=== PATIENT | male | born 2000 | race Caucasian/White ===

== ENCOUNTER 2020-03-06 08:29 | Outpatient (CLI) | payer OTHER ==
--- NOTE | 2020-03-06 11:31 | MRI Report ---
PROCEDURE: Hip RT W/O INDICATIONS: RIGHT HIP PAIN TECHNIQUE: Noncontrast coronal T1 spin echo and STIR through the bony pelvis. Coronal and axial T2 fast spin ec ho with fat saturation, sagittal T1 spin echo, and oblique axial T2 fast spin echo with fat saturatio n through the hip. COMPARISON: None. FINDINGS: Image quality: Excellent. Bones and joints: Bone marrow of the pelvic ring and proximal femurs show normal signal throughout. No intraosseous lesions or fractures. No avascular necrosis of the femoral heads. The visualized l ower lumbar spine appears normally aligned. Tendons: The gluteus medius and minimus tendons appear intact, without associated muscle atrophy. T he iliopsoas tendon appears intact, without adjacent bursal fluid collections. The origin of the ham string tendon is intact at the ischial tuberosity. Labrum and cartilage: The acetabular labrum appears intact in the absence of intra-articular contras t. Cartilage surface of the femoral head appears of normal thickness. The alpha angle of the femur is within normal limits at less than 55 degrees. Soft tissues: Visualized muscles demonstrate normal bulk and internal signal. The proximal sciatic neurovascular bundle appears normal adjacent to the hamstring tendons. No free pelvic fluid. Bladde r wall thickness is normal. Genitourinary structures and bowel loops appear normal where visualized. IMPRESSION: Unremarkable MR examination of right hip. No findings to explain patient's symptoms. Reviewed by: Craig Spann MD on 03/06/2020 11:30 AM PDT Approved by: Craig Spann MD on 03/06/2020 11:30 AM PDT Station ID: [id number]
== END 2020-03-06 08:30 | disposition home or self-care (01) ==
LOC: DI 08:29
DX: M25.551 Pain in right hip (principal)

== ENCOUNTER 2022-03-24 08:00 | Outpatient (CLI) | payer OTHER | END 2022-03-24 23:59 | disposition home or self-care (01) | LOC: LAB.N 08:00 | PROVIDERS: ATTEND Family Medicine | DX: R19.7 Diarrhea, unspecified (principal) | CPT/HCPCS: 87493 ==

== ENCOUNTER 2022-08-25 11:53 | Emergency (ER) | payer OTHER ==
[2022-08-25 12:05] VITALS: BP 126/80
--- NOTE | 2022-08-25 14:13 | ED Physician Documentation ---
History of Present Illness - Stated complaint Stated Complaint: L LEG PX - Chief complaint Chief Complaint: Ext Problem - History obtained from History obtained from: Patient - History of Present Illness Timing: Other (several years) Pain level max: 5 Pain level now: 1 - Additonal information Additional information: Patient is a 22-year-old male who states that he has had left hip pain for years. He states he keeps going to the emergency department and nobody can tell him what is wrong. He states he had an MRI 2 years ago but does not know what the results were. No fevers. No chills. Worse with movement, better with rest. He thinks that he tried physical therapy but does not know if he has ever seen an orthopedist. Denies any back pain. No loss of bowel or bladder control. No trauma. No falls. No fevers. Patient states that sometimes the pain is on the left side. Sometimes he states is on the right side. He denies any back pain. Review of Systems Constitutional: denies: Fever, Chills Respiratory: denies: Cough GI: denies: Nausea, Vomiting, Diarrhea Skin: denies: Rash Musculoskeletal: denies: Neck pain, Back pain Neurologic: denies: Headache PD PAST MEDICAL HISTORY - Past Medical History Past Medical History: No - Past Surgical History Past Surgical History: No - Present Medications Home Medications: Ambulatory Orders Medication Instructions Recorded Confirmed Cyclobenzaprine [Flexeril] 10 mg PO TID PRN #14 tablet 08/25/22 Ketorolac [Toradol] 10 mg PO Q6H PRN #20 tablet 08/25/22 - Allergies Allergies/Adverse Reactions: Allergies Allergy/AdvReac Type Severity Reaction Status Date / Time No Known Drug Allergies Allergy Verified 08/25/22 12:05 - Living Situation Living Arrangement: reports: At home - Social History Does the pt have substance abuse?: No - Family History Family history: reports: Non contributory PD ED PE NORMAL - Vitals Vital signs reviewed: Yes - General General: Alert and oriented X 3, No acute distress - HEENT HEENT: PERRL, Moist mucous membranes - Neck Neck: Supple, no meningeal sign - Cardiac Cardiac: RRR, Strong equal pulses - Respiratory Respiratory: No respiratory distress, Clear bilaterally - Abdomen Abdomen: Soft, Non tender, Non distended - Derm Derm: Warm and dry - Extremities Extremities: Other (FROM of the L hip without pain. FROM of the L knee as well.) - Neuro Neuro: Alert and oriented X 3, No motor deficit, No sensory deficit, Other (Normal bilateral lower extremity patellar and ankle jerk reflexes. Normal great toe extension bilaterally. no saddle anesthesia) - Psych Psych: Normal mood, Normal affect Results - Vitals Vitals: Vital Signs - 24 hr 08/25/22 08/25/22 12:02 14:39 Temperature 36.6 C Heart Rate 73 69 Respiratory 16 14 Rate Blood Pressure 126/80 O2 Saturation 100 100 Oxygen O2 Source Room air PD Medical Decision Making - ED course Complexity details: considered differential, d/w patient ED course: No emergency medical condition at this time. Patient has chronic hip pain, occasionally on the left, occasionally on the right. He has no pain with range of motion today. He has already had x-rays and MRI. No indication for further work-up in the emergency department. No spinal tenderness. No evidence of cauda equina. Given a dose of Toradol here. Will place on oral ketorolac for home. Patient ambulating without difficulty. Patient counseled regarding signs and symptoms for which I believe and urgent re-evaluation would be necessary. Patient with good understanding of and agreement to plan and is comfortable going home at this time This document was made in part using voice recognition software. While efforts are made to proofread this document, sound alike and grammatical errors may occur. Departure - Departure Disposition: 01 Home, Self Care Clinical Impression: Hip pain, chronic Qualifiers: Laterality: left Qualified Code(s): M25.552 - Pain in left hip Condition: Good Instructions: ED Chronic Pain Management Follow-Up: [facility] [Provider Group] - Within 1 week EUNICE BARON MD [Physician No Access] - Shawna Guerrero MD [Physician No Access] - MARNIE PELAEZ MD [Physician No Access] - Prescriptions: Cyclobenzaprine [Flexeril] 10 mg PO TID PRN #14 tablet PRN Reason: Spasms Ketorolac [Toradol] 10 mg PO Q6H PRN #20 tablet PRN Reason: back pain Comments: The cause of your chronic hip pain is unclear. It is recommended that you follow-up with physiatry for further care. There are several cashier receptionist at [facility] in [place]. I have listed to above. It is recommended that you obtain copies of your medical records to take with you. This way they will know what testing has been done. [place] sent to [facility] in [place]. Discharge Date/Time: 08/25/22 14:39
[2022-08-25] MEDS ORDERED: KETOROLAC 60 MG/2 ML VIAL IM STA (14:24)
== END 2022-08-25 14:39 | disposition home or self-care (01) ==
LOC: ED 11:53
DX: M25.552 Pain in left hip (principal); G89.29 Other chronic pain
CPT/HCPCS: 96372; 99283